=== PATIENT | female | born 1960 | race Caucasian/White ===

== ENCOUNTER 2024-03-10 08:41 | Outpatient (OUT) | payer OTHER, SELFPAY ==
[2024-03-10 08:59] LABS: Basophils Percent Auto 0.5 % (0.2-2.0); Eosinophils Absolute Auto 0.1 10^3/uL (0.0-0.7); Eosinophils Percent Auto 1.8 % (0.9-7.0); Hematocrit 43.4 % (36.0-48.0); Hemoglobin 14.3 g/dL (12.0-16.0); Lymphocytes Absolute Auto 1.5 10^3/uL (1.2-3.8); Lymphocytes Percent Auto 38.4 % (20.5-60.0); Mean Corpuscular HGB Conc 32.9 g/dL (29.9-35.2); Mean Corpuscular Hemoglobin 32.6 pg (26.7-34.0); Mean Corpuscular Volume 99.1 fL (81.0-99.0); Mean Platelet Volume 11.4 fL (9.5-13.5); Monocytes Absolute Auto 0.3 10^3/uL (0.3-0.8); Monocytes Percent Auto 7.5 % (1.7-12.0); Neutrophils Absolute Auto 2.1 10^3/uL (1.4-6.5); Neutrophils Percent Auto 51.8 % (43.0-75.0); Platelet Count 182 10^3/uL (150-450); Red Blood Count 4.38 10^6/uL (4.20-5.40); Red Cell Distribution Width 13.3 % (11.0-15.0)
[2024-03-10 09:21] LABS: Estimated Average Glucose 114 mg/dL; Glycohemoglobin A1C 5.6 % (4.5-6.2)
[2024-03-10 09:59] LABS: Alanine Aminotransferase 22 U/L (14-59); Albumin Level 3.4 g/dL (3.4-5.0); Alkaline Phosphatase 94 U/L (46-116); Anion Gap 13.6; Aspartate Amino Transferase 12 U/L (15-37); BUN Creatinine Ratio 16.2; Bilirubin Total 0.5 mg/dL (0.2-1.0); Calcium 8.9 mg/dL (8.5-10.1); Carbon Dioxide 27.6 mmol/L (21.0-32.0); Chloride 108 mmol/L (98-107); Chol HDL Ratio 3.2; Cholesterol 234 mg/dL (<=200); Estimated GFR (African America >60 (>=60 mL/min/1.73m^2); Estimated GFR (Non-African Ame 57 (>=60 mL/min/1.73m^2); Free T3 2.57 pg/mL (2.18-3.98); Globulin 3.4 g/dL; Glucose 92 mg/dL (74-106); HDL Cholesterol 72 mg/dL (40-60); Potassium 4.2 mmol/L (3.5-5.1); Sodium 145 mmol/L (136-145); Thyroid Stimulating Hormone 2.001 uIU/mL (0.358-3.740); Total Protein 6.8 g/dL (6.4-8.2); Triglycerides 80 mg/dL (<=150)
[2024-03-11 11:13] LABS: Insulin 10.6 uIU/mL (2.6-24.9)
== END 2024-03-10 08:42 | disposition home or self-care (01) ==
LOC: LAB 08:45
PROVIDERS: PCP Family Medicine; Visit Provider Nurse Practitioner Family
DX: E78.5 Hyperlipidemia, unspecified (principal); R53.83 Other fatigue; R73.09 Other abnormal glucose
CPT/HCPCS: 36415; 80053; 80061; 83036; 83525; 84436; 84443; 84481; 85025

== ENCOUNTER 2024-03-14 10:07 | Outpatient (OUT) | payer OTHER, SELFPAY ==
--- NOTE | 2024-03-14 10:09 | MM_ITS ---
Patient Name: ENDER HAINES MR#: [id number] : 1960 Exam Date: 03/14/2024 Ordering Doctor: DR Waqas Mcgill . RADIOLOGY REPORT PROCEDURE: MM TOMOSYNTHESIS SCREENING BI COMPARISON: MG MAMM SCREEN 3D TARA CAD, 08/22/2021. MG MAMM SCREEN TARA W CAD, 07/03/2018. MG MAMM TARA SCRN W CAD DIG, 05/03/2015. INDICATIONS: Screening Calculator Name NCI Breast Cancer Risk Assessment Tool 5 Year Breast Cancer Risk 1.60% Lifetime Breast Cancer Risk 7.90% Personal Breast Cancer No Personal Ovarian Cancer No Treatments None Family Cancers Aunt-maternal with breast cancer at age ~50; Aunt-paternal with breast cancer at age 73. LOCATION: [facility] BREAST COMPOSITION: The breasts are heterogeneously dense,which may obscure small masses. FINDINGS: DIAGNOSTIC CATEGORY 2--BENIGN FINDING: RIGHT BREAST: No significant suspicious finding. Scattered benign-appearing calcifications are present. No significant change has occurred. LEFT BREAST: No significant suspicious finding. No significant change has occurred. RECOMMENDATIONS: ROUTINE MAMMOGRAM AND CLINICAL EVALUATION IN 12 MONTHS. PLEASE NOTE: A NORMAL MAMMOGRAM DOES NOT EXCLUDE THE POSSIBILITY OF BREAST CANCER. A CLINICALLY SUSPICIOUS PALPABLE LUMP SHOULD BE BIOPSIED. Dictated by: Nicola Orantes M.D. on 03/14/2024 at 12:04 Approved by: Nicola Orantes M.D. on 03/14/2024 at 12:54
== END 2024-03-14 10:08 | disposition home or self-care (01) ==
LOC: MAMMO 10:07
PROVIDERS: PCP Family Medicine; Visit Provider Family Medicine
DX: Z12.31 Encounter for screening mammogram for malignant neoplasm of breast (principal); Z80.3 Family history of malignant neoplasm of breast
CPT/HCPCS: 77063; 77067

== ENCOUNTER 2025-03-26 08:49 | Outpatient (OUT) | payer OTHER, SELFPAY ==
--- NOTE | 2025-03-26 08:51 | MM_ITS ---
Patient Name: ENDER HAINES MR#: [id number] : 1960 Exam Date: 03/26/2025 Ordering Doctor: DR JACQUELINE AL . RADIOLOGY REPORT PROCEDURE: MM TOMOSYNTHESIS SCREENING BI COMPARISON: MM TOMOSYNTHESIS SCREENING BI, 03/14/2024. MG MAMM SCREEN 3D TARA CAD, 08/22/2021. MG MAMM SCREEN TARA W CAD, 07/03/2018. MG MAMM TARA SCRN W CAD DIG, 05/03/2015. INDICATIONS: Screening Calculator Name NCI Breast Cancer Risk Assessment Tool 5 Year Breast Cancer Risk 1.70% Lifetime Breast Cancer Risk 7.70% Personal Breast Cancer No Personal Ovarian Cancer No Treatments None Family Cancers Aunt-maternal with breast cancer at age ~50; Aunt-paternal with breast cancer at age 73. LOCATION: [facility] BREAST COMPOSITION: There are scattered areas of fibroglandular density. FINDINGS: DIAGNOSTIC CATEGORY 1--NEGATIVE. RIGHT BREAST: No significant suspicious finding. LEFT BREAST: No significant suspicious finding. RECOMMENDATIONS: ROUTINE MAMMOGRAM AND CLINICAL EVALUATION IN 12 MONTHS. Dictated by: Tesfaye Dewey DO on 03/26/2025 at 10:48 Approved by: Tesfaye Dewey DO on 03/26/2025 at 10:50
--- OUTSIDE RECORDS SUMMARY | 2025-03-26 08:52 | XMS_ITS | Patient Health Record ---
Author Organization [facility] [place] Address [address] [place] [address] Care Team Providers Care General Manager Name Role Phone Jayjay Mcgill Primary Care Provider [phone] Allergies No Known Allergies Reason For Referral No Information Social History Tobacco Use: Social History Observation Description Date Details (start date - stop date) Never Smoker NA - NA Tobacco Control (Standard) Question Answer Notes Tobacco use: Nonsmoker AUDIT-C (Standard) Question Answer Notes Did you have a drink containing alcohol in the p ast year? No [id number] Plan Of Treatment Pending Test Test Name Order Date CMP (COMPLETE METABOLIC PANEL) 4 HEMOGLOBIN A1C (GLYCO) 03/06/2024 INSULIN, TOTAL 03/06/2024 LIPID PANEL (CHOL/TRIG/HDL/LDL) 03/06/20 24 CBC WITH DIFF (EXP 02/2025) 03/06/2024 THYROID PANEL (T4/TSH/FREE T3) 4 Insurance Providers Payer Name Payer Address Payer Phone Subscriber Number Group Number Insured Name Patient Relationship to Insured Coverage Start Date Coverage End Date ADELE ZARCOG [address] ATTN CLAIMS [place], [place] [id number] Beverly Oliverelf - patient is the insured
--- OUTSIDE RECORDS SUMMARY | 2025-03-26 08:54 | XMS_ITS | CCD ---
Author Organization [facility] Care Team Providers Care Supervisor Powdered Sugar Name Role Phone SERVANDO, DR PHILLIPS Primary Care Unavailable ERNESTO, YAIR Admitting Unavailable ERNESTO, YAIR Attending Unavailable CHERI, DR JOSE Vazquez Consulting Unavailable MYKE, JORY Consulting Unavailable ERNESTO, YAIR Consulting Unavailable MISHA, GIPrem Consulting Unavailable SERVANDO, DR PHILLIPS Admitting Unavailable HOY, DR PHILLIPS Attending Unavailable HOY, DR PHILLIPS Primary Care Unavailable HOY, DR PHILLIPS Consulting Unavailable HOY, DR PHILLIPS Admitting Unavailable HOY, DR PHILLIPS Attending Unavailable HOY, DR PHILLIPS Primary Care Unavailable HOY, DR PHILLIPS Consulting Unavailable WEST, DR ANNIE Ram Consulting Unavailable GRICELDA, CHUCHO Admitting Unavailable GRICELDA, CHUCHO Attending Unavailable HOY, DR PHILLIPS Primary Care Unavailable GRICELDA, CHUCHO Consulting Unavailable HOY, DR PHILLIPS Admitting Unavailable HOY, DR PHILLIPS Attending Unavailable HOY, DR PHILLIPS Primary Care Unavailable HOY, DR PHILLIPS Consulting Unavailable HOY, DR PHILLIPS Admitting Unavailable HOY, DR PHILLIPS Attending Unavailable HOY, DR PHILLIPS Primary Care Unavailable HOY, DR PHILLIPS Consulting Unavailable HOY, DR PHILLIPS Admitting Unavailable HOY, DR PHILLIPS Attending Unavailable HOY, DR PHILLIPS Primary Care Unavailable HOY, DR PHILLIPS Consulting Unavailable Problems Active Problems Problem ClassificationProblemDateDocumented DateEpisodic/ChronicSyncope (4 sources)Syncope and collapse; Translations: [SYNCOPE AND COLLAPSE]Onset: 93-74-5043WffcdycdVvlnsikvovvf (2 sources)CONTACT W/AND (SUSP) EXPOS COVID-19; Translations: [CONTACT W/AND (SUSP) EXPOS COVID-19]Onset: 95-08-3585Awxol infection (1 source)COVID-19; Translations: [COVID-19]Onset: 01-01-2022 Past or Other Problems Problem ClassificationProblemDateDocumented DateEpisodic/ChronicOther screening for suspected conditions (not mental disorders or infectious disease) (8 sources)Encounter for screening mammogram for malignant neoplasm of breast; Translations: [Encounter for screening for malignant neoplasm of cervix]Onset: 82-61-3515CgvtczonQlzuxugm codes; unclassified (1 source)Family history of malignant neoplasm of breast; Translations: [FAMILY HX MALIG NEOPLASM OF BREAST]Onset: 26-69-5126TjmtxatwGbtwtxphwluc (1 source)CONTACT W/AND (SUSP) EXPOS COVID-19; Translations: [CONTACT W/AND (SUSP) EXPOS COVID-19]Onset: 12-30-2021 Results Test NameValueInterpretationReference RangeFacilityECHOCARDIO M/2D COMPLETEon [id number] M/2D COMPLETEPatient: ENDER HAINES Exam Date: 01/27/2022 : 1960 Gender:F Ordering : DR JACQUELINE AL . Admission #: [id number] Family : Order #: [id number] CLICK HERE TO VIEW EXAM ECHOCARDIOGRAM REPORT PROCEDURE: CARDIO PULMONARY ECHOCARDIO M/2D COMP INDICATIONS: Syncope COMPARISON: None. DESCRIPTION: COMPLETE ECHOCARDIOGRAM Real-time transthoracic echocardiography with 2D, M-mode, spectral and color flow Doppler performed. QUALITY: Technical quality was good. LEFT VENTRICLE: Normal chamber size. Normal left ventricular wall thickness. Global left ventricular systolic function is normal. LV EF: Estimated left ventricular ejection fraction is 60-65%. DIASTOLIC: Diastolic function is indeterminate. ATRIAL SEPTUM: LEFT ATRIUM: Normal chamber size. RIGHT ATRIUM: Mild dilatation. RIGHT VENTRICLE: Mild dilatation. Normal right ventricular systolic function. TRICUSPID VALVE: Normal mobility and thickness. No stenosis with mild regurgitation. No evidence of pulmonary hypertension. RVSP 29 mmHg. MITRAL VALVE: Normal mobility and thickness. No mitral valve prolapse. No evidence of mitral valve stenosis. There is no mitral annular calcification. Trivial mitral regurgitation. AORTIC VALVE: Normal trileaflet appearance. No visible sclerosis. Normal leaflet mobility. No evidence of aortic valve stenosis. No aortic regurgitation. AORTIC ROOT: Normal diameter and appearance. PULMONIC VALVE: Normal thickness and mobility. No stenosis. Trivial regurgitation. PERICARDIUM: No evidence of pericardial effusion. IVC: Collapses with inspirations. Normal size. PLEURA: CONCLUSION: 1. Normal ventricular systolic function. LVEF is 60 to 65%. 2. No significant valvular dysfunction. 3. Mild biatrial dilatation. 4. Normal right-sided pressures. 5. No pericardial effusion. Adult Echocardiography Procedure Report Left Ventricle LVEDD (3.7 - 5.6 cm): 4.12 cm LVESD (2.2 - 4.0 cm): 2.43 cm LVIVS thickness (0.6 - 1.2 cm): 0.82 cm LVPW thickness (0.5 - 1.0 cm): 0.80 cm e': 0.09 m/s E - e': 7.60 LVOT Max Gradient: 2.80 mm[Hg] Peak Velocity (LVOT): 0.84 m/s Mean Velocity (LVOT): 0.60 m/s LVOT Diameter 1.95 cm Left Ventricular Ejection Fraction: 60-65 % Left Atrium LA Volume Index (2D A2C): 54.91 ml, 54.91 ml Left Atrium Systolic Dimension: 2.79 cm Mitral Valve MV E to A Ratio: 0.80 Mitral Valve A-Wave Peak Velocity: 0.83 m/s Mitral Valve E-Wave Peak Velocity: 0.66 m/s Right Ventricle RV Internal Diastolic Dimension: 3.80 cm Aorta AO Root Diam: 2.81 cm Ascending Ao Diam: 2.39 cm Aortic Valve AoV Area (Peak Yousuf): 1.84 cm2, 1.84 cm2 AoV Area (VTI): 1.80 cm2, 1.80 cm2 Peak Velocity(Antegrade Flow): 1.36 m/s Peak Gradient(Antegrade Flow): 7.41 mm[Hg] Mean Velocity(Antegrade Flow): 0.96 m/s Mean Gradient(Antegrade Flow): 4.18 mm[Hg] Velocity Time Integral: 31.35 cm Tricuspid Valve Peak Velocity (Regurgitant Flow): 2.53 m/s, 2.33 m/s, 2.50 m/s Peak Velocity: 0.42 m/s Pulmonic Valve Mean Gradient: 2.58 mm[Hg], 2.91 mm[Hg] Mean Velocity: 0.75 m/s, 0.79 m/s Peak Velocity: 1.09 m/s, 1.16 m/s Peak Gradient: 4.78 mm[Hg], 5.42 mm[Hg] Right Atrium Right Atrium Systolic Pressure: 79.80 ml, 79.80 ml Dictated by: John Malhotra M.D. on 01/31/2022 at 07:54 Approved by: John Malhotra M.D. on 01/31/2022 at 07:57NormalThTwin City Hospital AUTO DIFFon 98-58-5614ZJQZ #0.0 103/ulNormal0.0-0.1The [facility] HospitalComment on above:Performed By: #### CBC #### [facility] [address] [address] [address] Aj MedinaBasophils/100 WBC (Bld)0.4 %Normal0.2-2.0The [facility] Comment on above:Performed By: #### CBC #### [facility] [address] [address] [address] Aj Mauricio #0.0 103/ulNormal0.0-0.7The [facility] HospitalComment on above: Performed By: #### CBC #### [facility] [address] [address] [address] Aj Soosinophils/100 WBC (Bld)0.2 %Critically low0.9-7.0The [facility] HospitalComment on above:Performed By: #### CBC #### [facility] [address] [address] [address] Aj Sorythrocyte distribution width (RBC) [Ratio]13.1 %Vxyrvp34.0-15.0 The [facility] HospitalComment on above:Performed By: #### CBC #### [facility] [address] [address] [address] Aj MedinaHematocrit (Bld) [Volume fraction]40.9 %Okmcbb89.0-48.0The [facility] HospitalComment on above:Performed By: #### CBC #### [facility] [address] [address] [address] Aj MedinaHemoglobin (Bld) [Mass/Vol]13.4 g/lSNagjdj37.0-16.0The [facility] HospitalComment on above:Performed By: #### CBC #### [facility] [address] [address] [address] Aj De La Garza #0.39 10e3/ulCritically high0.00-0.03The [facility] Comment on above:Performed By: #### CBC #### [facility] [address] [address] [address] Aj De La Garza %3.6 %Critically high0.0-0.5The [facility] HospitalComment on above:Performed By: #### CBC #### [facility] [address] [address] [address] Aj Tapia #1.7 103/ulNormal1.2-3.8The [facility] HospitalComment on above:Performed By: #### CBC #### [facility] [address] [place] [address] Dr. Aj Nunnhocytes/100 WBC (Bld)15.3 %Critically low20.5-60.0The [facility] HospitalComment on above:Performed By: #### CBC #### [facility] [address] [address] [address] jA SaucedoUAL DIFF REQNONormalThe [facility] HospitalComment on above: Performed By: #### CBC #### [facility] [address] [address] [address] Aj Leos (RBC) [Entitic mass]32.1 neLxopyf15.7-34.0The [facility] HospitalComment on above:Performed By: #### CBC #### [facility] [address] [place] [address] Dr. Aj Leos (RBC) [Mass/Vol]32.8 g/gEGssuoq71.9-35.2The [facility] Hospitalment on above:Performed By: #### CBC #### [facility] [address] [place] [address] Dr. Aj Leos (RBC) [Entitic vol]98.1 fDEyujyp88.0-99.0The [facility] HospitalComment on above:Performed By: #### CBC #### [facility] [address] [address] [address] Aj Peralta #1.0 103/ulCritically high0.3-0.8ThC[facility] Comment on above:Performed By: #### CBC #### [facility] [address] [address] [address] Aj Lunaocytes/100 WBC (Bld)9.2 %Normal1.7-12.0[facility] Comment on above:Performed By: #### CBC #### [facility] [address] [place] [address] Dr. Aj Orellana #7.8 103/ulCritically high1.4-6.5ThC[facility] Comment on above:Performed By: #### CBC #### [facility] [address] [place] [address] Dr. Aj Garciautrophils/100 WBC (Bld)71.3 %Ujaner41.0-75.0[facility] SpringfieldComment on above:Performed By: #### CBC #### [facility] [address] [place] [address] Dr. Aj Allenlet mean volume (Bld) [Entitic vol]11.0 fLNormal9.5-13.5ThCleveland Clinic Avon HospitalComment on above:Performed By: #### CBC #### [facility] [address] [place] [address] Dr. Aj MedinaPLT169 103/axNkassr612-799Pna [facility] HospitalComment on above: Performed By: #### CBC #### [facility] [address] [place] [address] Dr. Aj MedinaRBC4.17 106/ulCritically low4.20-5.40The [facility] HospitalComment on above:Performed By: #### CBC #### [facility] [address] [place] [address] Dr. Aj MedinaWBC10.9 103/ulNormal4.0-11.0[facility] SpringfieldComment on above:Performed By: #### CBC #### [facility] [address] [address] [address] Aj Castillo CHEST WO W CONon [id number] CHEST WO W CONEXAMINATION: CTA CHEST WO W CON HISTORY: Syncope COMPARISON: Chest radiograph 01/07/2022 TECHNIQUE: CT angiography of the pulmonary arteries following the administration of intravenous contrast. Coronal and sagittal MIP (maximum intensity projection) images were performed. 3-D image processing was performed on a separate workstation. Dose reduction techniques were achieved by using automated exposure control and/or adjustment of mA and/or kV according to patient size and/or use of iterative reconstruction technique. FINDINGS: The study is technically adequate for the diagnosis of pulmonary embolism, with good contrast bolus to the pulmonary arteries. TUBES AND IMPLANTS: None. CHEST WALL AND LOWER NECK: Unremarkable. BONES: No suspicious lesions UPPER ABDOMEN: Unremarkable. MEDIASTINUM AND DIANA: Large paraesophageal hernia with intrathoracic stomach AORTA: Unremarkable. No dissection or other acute aortic syndrome. PULMONARY ARTERIES: No embolism HEART: Not enlarged CORONARY ARTERIES: No coronary artery calcifications. LUNG AND AIRWAYS: Unremarkable. PLEURA: Unremarkable. IMPRESSION: 1. No evidence for pulmonary embolism. No aortic dissection or other acute aortic syndrome. 2. Large paraesophageal hernia with intrathoracic stomach. No evidence of obstruction or ischemia. Electronically authenticated by: ANDREW CABRAL Date: 2022-01-07 21:25[facility]-DIMERon 54-97-5051O-DIMER3.37 mg/L FEUCritically high<=0.59 The [facility] on above:Performed By: #### DDIM #### [facility] [address] [place] [address] Dr. Aj Miles-DIMER COMMENTSSEE BELOWVeterans Health Administration on above:Result Comment: Increases in D-Dimer concentration observed with thromboembolic events can be variable due to localization, size, and age of the thrombus. Therefore, a thromboembolic event cannot be diagnosed with certainty on the basis of the reference range. D-Dimers may also be elevated for a variety of disorders including: advanced age, , coronary disease, cancer, liver disease, infection, inflammation, hematoma, DIC, trauma, post-surgery, diabetes, thrombolytic or anticoagulant therapy, stress, and generalized hospitalization. Performed By: #### DDIM #### [facility] [address] [address] [address] Aj Mcdowell 14(COMP METB)on 32-55-3578Scovguz [Mass/Vol]2.3 g/dL Critically low3.4-5.0The [facility] HospitalComment on above:Performed By: #### CMP, HSTROPN #### [facility] [address] [place] [address] Dr. Aj MedinaAlbumin/Globulin [Mass ratio]0.7 {ratio}NormalThe [facility] HospitalComment on above:Performed By: #### CMP, HSTROPN #### [facility] [address] [place] [address] Dr. Aj CastorenaP [Catalytic activity/Vol]70 U/IAbvkwk01-950Qsj [facility] HospitalComment on above:Performed By: #### CMP, HSTROPN #### [facility] [address] [place] [address] Dr. Aj CastorenaT [Catalytic activity/Vol]37 U/KAracxw10-10Avl [facility] HospitalComment on above:Performed By: #### CMP, HSTROPN #### [facility] [address] [place] [address] Dr. Aj Hussein gap [Moles/Vol]9.2 mmol/LNormalThe [facility] HospitalComment on above:Performed By: #### CMP, HSTROPN #### [facility] [address] [place] [address] Dr. Aj MedinaAST [Catalytic activity/Vol]10 U/LCritically kgp59-35Apj [facility] HospitalComment on above:Performed By: #### CMP, HSTROPN #### [facility] [address] [place] [address] Dr. Aj MedinaBilirubin [Mass/Vol]0.3 mg/dLNormal0.2-1.0The [facility] Comment on above:Performed By: #### CMP, HSTROPN #### [facility] [address] [address] [address] Aj MedinaCalcium [Mass/Vol]7.5 mg/dLCritically low8.5-10.1The [facility] HospitalComment on above:Performed By: #### CMP, HSTROPN #### [facility] [address] [address] [address] Aj MedinaChloride [Moles/Vol]107 mmol/OYpzftw48-206Zaf [facility] Comment on above:Performed By: #### CMP, HSTROPN #### [facility] [address] [address] [address] jA MedinaCO2 [Moles/Vol]29.7 mmol/XVkhsis38.0-32.0The [facility] Comment on above:Performed By: #### CMP, HSTROPN #### [facility] [address] [address] [address] Aj MedinaCreatinine [Mass/Vol]1.06 mg/dLCritically high0.55-1.02The [facility] HospitalComment on above:Performed By: #### CMP, HSTROPN #### [facility] [address] [address] [address] Rocha ChangEGFR-AF EAST TIMORESE>60Normal>=60The [facility] HospitalComment on above:Performed By: #### CMP, HSTROPN #### [facility] [address] [address] [address] Aj SoGFR-NON AF EEZGYYWQ65 mL/min/1.46k3Ikehngcukg low>=60The [facility] HospitalComment on above:Performed By: #### CMP, HSTROPN #### [facility] [address] [address] [address] Aj MedinaGlobulin (S) [Mass/Vol]3.1 g/dLNormalThe [facility] HospitalComment on above:Performed By: #### CMP, HSTROPN #### [facility] [address] [address] [address] Aj MedinaGlucose [Mass/Vol]116 mg/dLCritically dehn65-087Iek [facility] HospitalComment on above:Performed By: #### CMP, HSTROPN #### [facility] [address] [place] [address] Dr. Aj MedinaPotassium [Moles/Vol]3.9 mmol/LNormal3.5-5.1The [facility] Comment on above:Performed By: #### CMP, HSTROPN #### [facility] [address] [place] [address] Dr. Aj MedinaProtein [Mass/Vol]5.4 g/dLCritically low6.4-8.2The [facility] HospitalComment on above:Performed By: #### CMP, HSTROPN #### [facility] [address] [place] [address] Dr. Aj MedinaSodium [Moles/Vol]142 mmol/SMgamzr987-487Jzp [facility] Comment on above:Performed By: #### CMP, HSTROPN #### [facility] [address] [place] [address] Dr. Aj MedinaUrea nitrogen [Mass/Vol]23.0 mg/dLCritically high7.0-18.0The [facility] HospitalComment on above:Performed By: #### CMP, HSTROPN #### [facility] [address] [place] [address] Dr. Aj MedinaUrea nitrogen/Creatinine [Mass ratio]21.7 mg/mgNormalThe [facility] HospitalComup health system on above:Performed By: #### CMP, HSTROPN #### [facility] [address] [place] [address] Dr. Aj Gil, HIGH SENSITIVITYon 48-68-9625YFGPSP59.2 pg/mLNormal 4.0-51.3The [facility] on above:Result Comment: CUT-OFF POINTS HAVE BEEN ESTABLISHED BASED ON THE FOURTH UNIVERSAL DEFINITIONS OF MYOCARDIAL INFARCTION. THE UPPER REFERENCE LIMIT (URL) OF TROPONIN, DEFINED THE 99TH PERCENTILE OF cTnI DISTRIBUTION IN A REFERENCE POPULATION, HAS BEEN CONFIRMED THE DECISION THRESHOLD FOR NM DIAGNOSIS.Performed By: #### CMP, HSTROPN #### [facility] [address] [address] [address] Aj MedinaXR CHEST 1 Von 70-88-9689JR CHEST 1 VEXAM: XR CHEST 1 V COMPARISON: None available. CLINICAL INDICATION: Syncope. FINDINGS: The cardiomediastinal silhouette is within normal limits. No focal consolidation. No pleural effusion. No pneumothorax. Large hiatal hernia appears to be present overlying the cardiac silhouette. No evidence of acute osseous abnormality. IMPRESSION: 1. No radiographic evidence of acute abnormality. 2. Large hiatal hernia. Electronically authenticated by: JORY STRINGER Date: 2022-01-07 18:52NormalThe [facility] HospitalCovid-19 PCR (CVDTBH)on 65-36-5067AVTT-CoV-2 (COVID-19) RNA ABIODUN+probe Ql (Unsp spec)DetectedCritically abnormalNOT DETECTEDThe [facility] HospitalComment on above:Result Comment: This test is not yet approved or cleared by the [place] FDA. When there are no FDA-approved or cleared tests available, and other criteria are met, FDA can make tests available under an emergency access mechanism called an Emergency Use Authorization (EUA). The EUA for this test is supported by the [place] of Health and Human Service's (HHS's) declaration that circumstances exist to justify the emergency use of in vitro diagnostics for the detection and/or diagnosis of the virus that causes COVID-19. This EUA will remain in effect (meaning this test can be used) for the duration of the COVID-19 declaration justifying emergency of IVDs, unless it is terminated or revoked by FDA (after which the test may no longer be used). Performed By: #### OBSCRN #### [facility] [address] [address] [address] jA MedinaSYMPTOMATIC COVID-19 ANTIGENon 83-82-1071BGM StatementSEE BELOW NormalThe [facility] on above:Result Comment: This test has not been FDA cleared or approved, but has been authorized by the FDA under an Emergency Use Authorization (EUA) for use by authorized laboratories certified under CLIA that meet the requirements to perform moderate or high complexity testing. This test has been authorized only for the detection of proteins from SARS-CoV-2, not for any other viruses or pathogens. The emergency use of this test is authorized for the duration of the declaration that circumstances exist justifying the authorization of emergency use of in vitro diagnostic tests for detection and/or diagnosis of Covid-19 under section 564(b)(1) of the Act, 21 U.S.C. 360bbb-3(b)(1), unless the declaration is terminated or authorization is revoked sooner.Performed By: #### CVDAGS #### [facility] [address] [place] [address] Dr. Aj Briscoe-CoV-2 (COVID-19) RNA ABIODUN+probe Ql (Unsp spec)Positive Critically abnormalNEGATIVEKettering Health SpringfieldComment on above:Performed By: #### CVDAGS #### [facility] [address] [place] [address] Dr. Aj Almeida ACOG PANEL 2: 30 to 65on 08-23-2021..NormalKettering Health SpringfieldComment on above:Result Comment: Performed at: WBPerformed By: #### [id number] #### [facility] [address] [place] [address] Dr. Aj MedinaAge Gdln ACOG Basxuuu04-10LwqceoDymSelect Medical Specialty Hospital - Southeast OhioComment on above:Performed By: #### [id number] #### [facility] [address] [place] [address] Dr. Aj MedinaDIAGNOSIS:CommentVeterans Health Administration on above: Result Comment: NEGATIVE FOR INTRAEPITHELIAL LESION OR MALIGNANCY. Performed at: WBPerformed By: #### [id number] #### [facility] [address] [place] [address] Dr. Aj MedinaHPLeanna AptimaNegativeNormalNegativeKettering Health SpringfieldComup health system on above:Result Comment: This nucleic acid amplification test detects fourteen high-risk HPV types (16,18,31,33,35,39,45,51,52,56,58,59,66,68) without differentiation. Performed at: =GPerformed By: #### [id number] #### [facility] [address] [place] [address] Dr. Aj MedinaMethodology:CommentVeterans Health Administration on above: Result Comment: This liquid based ThinPrep(R) pap test was screened with the use of an image guided system. Performed at: WBPerformed By: #### [id number] #### [facility] [address] [place] [address] Dr. Aj MedinaNote:CommentVeterans Health Administration on above:Result Comment: The Pap smear is a screening test designed to aid in the detection of premalignant and malignant conditions of the uterine cervix. It is not a diagnostic procedure and should not be used as the sole means of detecting cervical cancer. Both false-positive and false-negative reports do occur. . Performed at: WBPerformed By: #### [id number] #### [address] [place] [address] Dr[address] Aj MedinaPerformed by:CommentVeterans Health Administration on above: Result Comment: Aletha Ko Jacquard Loom Weaver (ASCP) Performed at: WBPerformed By: #### [id number] #### [facility] [address] [place] [address] Dr. Aj MedinaSpecimen adequacy:CommentVeterans Health Administration on above:Result Comment: Satisfactory for evaluation. Endocervical and/or squamous metaplastic cells (endocervical component) are present. Performed at: WBPerformed By: #### [id number] #### [facility] [address] [place] [address] Dr. Aj MedinaMG MAMM SCREEN 3D TARA CADon [id number] MAMM SCREEN 3D TARA CAD Patient: ENDER HAINES Exam Date: 08/22/2021 : 1960 Gender:F Ordering : DR JACQUELINE AL . Admission #: [id number] Family : Order #: [id number] CLICK HERE TO VIEW EXAM RADIOLOGY REPORT PROCEDURE: MAMMOGRAM SCREENING 3D BILATERAL CAD COMPARISON: MG MAMM TARA SCRN W CAD DIG, 05/03/2015. MG MAMM SCREEN TARA W CAD, 07/03/2018. INDICATIONS: Screening mammography Calculator Name NCI Breast Cancer Risk Assessment Tool 5 Year Breast Cancer Risk 1.50% Lifetime Breast Cancer Risk 8.30% Personal Breast Cancer No Personal Ovarian Cancer No Treatments None Family Cancers Aunt-maternal with breast cancer at age 50; Aunt-paternal with breast cancer at age 73. LOCATION: [facility] BREAST COMPOSITION: Heterogeneously dense,which may obscure small masses. FINDINGS: DIAGNOSTIC CATEGORY 2--BENIGN FINDING. NO CHANGE FROM COMPARISON. Scattered benign-appearing nodules are present. Scattered benign-appearing calcifications are present. Scattered benign-appearing lymph nodes are present. RIGHT BREAST: No significant suspicious finding. LEFT BREAST: No significant suspicious finding. RECOMMENDATIONS: ROUTINE MAMMOGRAM AND CLINICAL EVALUATION IN 12 MONTHS. PLEASE NOTE: A NORMAL MAMMOGRAM DOES NOT EXCLUDE THE POSSIBILITY OF BREAST CANCER. A CLINICALLY SUSPICIOUS PALPABLE LUMP SHOULD BE BIOPSIED. Dictated by: Annie Bernardo MD on 08/22/2021 at 12:58 Approved by: Annie Bernardo MD on 08/22/2021 at 13:00Norm[facility] INSULINon 46-79-8851Jvcglzn82.4 uIU/mLNormal2.6-24.9The [facility] HospitalComment on above:Performed By: #### INSULIN #### [facility] [address] [place] [address] Dr. Aj Strange AUTO DIFFon 73-47-1378HFWZ #0.0 103/ulNormal0.0-0.1The [facility] HospitalComment on above:Performed By: #### OBSCRN #### [facility] [address] [place] [address] Dr. Aj Josephsophils/100 WBC (Bld)0.4 %Normal0.2-2.0The [facility] Comment on above:Performed By: #### OBSCRN #### [facility] [address] [place] [address] Dr. Aj Mauricio #0.1 103/ulNormal0.0-0.7The [facility] HospitalComment on above: Performed By: #### OBSCRN #### [facility] [address] [place] [address] Dr. Aj Soosinophils/100 WBC (Bld)2.6 %Normal0.9-7.0The [facility] Comment on above:Performed By: #### OBSCRN #### [facility] [address] [place] [address] Dr. Aj Sorythrocyte distribution width (RBC) [Ratio]13.7 %Iuobyy80.0-15.0 The [facility] HospitalComment on above:Performed By: #### OBSCRN #### [facility] [address] [place] [address] Dr. Aj MedinaHematocrit (Bld) [Volume fraction]43.2 %Xohbwv11.0-48.0The [facility] HospitalComment on above:Performed By: #### OBSCRN #### [facility] [address] [place] [address] Dr. Aj MedinaHemoglobin (Bld) [Mass/Vol]14.1 g/wFCupqsd56.0-16.0The [facility] HospitalComment on above:Performed By: #### OBSCRN #### [facility] [address] [place] [address] Dr. Aj De La Garza #0.01 10e3/ulNormal0.00-0.03The [facility] HospitalComment on above:Performed By: #### OBSCRN #### [facility] [address] [place] [address] Dr. Aj De La Garza %0.2 %Normal0.0-0.5The [facility] HospitalComment on above: Performed By: #### OBSCRN #### [facility] [address] [place] [address] Dr. Aj CoxMPH #1.9 103/ulNormal1.2-3.8The [facility] HospitalComment on above:Performed By: #### OBSCRN #### [facility] [address] [place] [address] Dr. Aj Coxmphocytes/100 WBC (Bld)41.2 %Lzuozj73.5-60.0The [facility] HospitalComment on above:Performed By: #### OBSCRN #### [facility] [address] [address] [address] Aj Boyce DIFF REQNONormalThe [facility] HospitalComment on above: Performed By: #### OBSCRN #### [facility] [address] [place] [address] Dr. Aj Leos (RBC) [Entitic mass]32.3 emHkyylb46.7-34.0The [facility] HospitalComment on above:Performed By: #### OBSCRN #### [facility] [address] [place] [address] Dr. Aj Leos (RBC) [Mass/Vol]32.6 g/wNDpgqqz56.9-35.2The [facility] HospitalComment on above:Performed By: #### OBSCRN #### [facility] [address] [place] [address] Dr. Aj LeosV (RBC) [Entitic vol]99.1 fLCritically high81.0-99.0The [facility] HospitalComment on above:Performed By: #### OBSCRN #### [facility] [address] [place] [address] Dr. Aj Peralta #0.3 103/ulNormal0.3-0.8The [facility] HospitalComment on above:Performed By: #### OBSCRN #### [facility] [address] [place] [address] Dr. Aj Lunaocytes/100 WBC (Bld)7.3 %Normal1.7-12.0The [facility] Comment on above:Performed By: #### OBSCRN #### [facility] [address] [place] [address] Dr. Aj Orellana #2.2 103/ulNormal1.4-6.5The [facility] HospitalComment on above:Performed By: #### OBSCRN #### [facility] [address] [place] [address] Dr. Aj Garciautrophils/100 WBC (Bld)48.3 %Erdczi03.0-75.0The [facility] Hospitalment on above:Performed By: #### OBSCRN #### [facility] [address] [address] [address] Aj Allenlet mean volume (Bld) [Entitic vol]11.7 fLNormal9.5-13.5The [facility] HospitalComment on above:Performed By: #### OBSCRN #### [facility] [address] [place] [address] Dr. Aj MedinaPLT183 103/uwQdutha902-184Ffz [facility] HospitalComment on above: Performed By: #### OBSCRN #### [facility] [address] [place] [address] Dr. Aj MedinaRBC4.36 106/ulNormal4.20-5.40The [facility] HospitalComment on above:Performed By: #### OBSCRN #### [facility] [address] [place] [address] Dr. Aj MedinaWBC4.5 103/ulNormal4.0-11.0The [facility] HospitalComment on above: Performed By: #### OBSCRN #### [facility] [address] [place] [address] Dr. Aj Brewer THYROXINE INDEX T7on 04-37-0227SWX4.91NormalThCleveland Clinic Avon HospitalComment on above:Performed By: #### TSH, LIPID, T7, CMP #### [facility] [address] [place] [address] Dr. Aj MedinaT3U32.0 %Ytgrkj00.5-40.5The [facility] on above: Performed By: #### TSH, LIPID, T7, CMP #### [facility] [address] [place] [address] Dr. Aj MedinaT4 [Mass/Vol]9.10 ug/dLNormal4.80-13.90The [facility] on above:Performed By: #### TSH, LIPID, T7, CMP #### [facility] [address] [place] [address] Dr. Aj MedinaGLYCOHEMOGLOBIN A1Con 87-01-2772OWD RECOMMENDATIONSEE BELOWNoreplaced by [facility] HospitalComup health system on above:Result Comment: ADA RECOMMENDED LIMIT 4.0 - 6.0 ADA THERAPEUTIC TARGET < 7.0 ACTION SUGGESTED > 7.0Performed By: #### OBSCRN #### [facility] [address] [place] [address] Dr. Aj MedinaGlucose [Mass/Vol]111 mg/dLNoSelect Medical Specialty Hospital - Southeast OhioComup health system on above:Performed By: #### OBSCRN #### [facility] [address] [place] [address] Dr. Aj MedinaHbA1c (Bld) [Mass fraction]5.5 %Normal4.5-6.2The [facility] HospitalComup health system on above:Performed By: #### OBSCRN #### [facility] [address] [place] [address] Dr. Aj MedinaIROZoila 04-47-8896Uory [Mass/Vol]83.0 ug/tNMksaur80.0-170.0[facility] on above:Performed By: #### OBSCRN #### [facility] [address] [place] [address] Dr. Aj MedinaLIPID PROFILEon 25-02-0744TKYS-HDL RATIO NORMSEE BELOWBarney Children's Medical CenterComup health system on above:Result Comment: 3.3 - 4.4 LOW RISK 4.4 - 7.1 AVERAGE RISK 7.1 - 11.0 MODERATE RISK >11.0 HIGH RISKPerformed By: #### OBSCRN #### [facility] [address] [place] [address] Dr. Aj MedinaCholesterol [Mass/Vol]227 mg/dLCritically high<=200The [facility] on above:Performed By: #### OBSCRN #### [facility] [address] [place] [address] Dr. Aj MedinaCholesterol in HDL [Mass/Vol]61 mg/dLCritically tdqw78-49Mqv [facility] on above:Performed By: #### OBSCRN #### [facility] [address] [address] [address] Aj MedinaCholesterol in LDL [Mass/Vol]145.6 mg/dLBarney Children's Medical CenterComment on above:Performed By: #### OBSCRN #### [facility] [address] [place] [address] Dr. Aj Godinezesterpreet.total/Cholesterol in HDL [Mass ratio]3.7 {ratio} NormalThe [facility] HospitalComment on above:Performed By: #### OBSCRN #### [facility] [address] [place] [address] Dr. Aj Beck NORMAL> or = 60 mg/dl - LOW CARDIOVASCULAR RISK <40 mg/dl - HIGH CARDIOVASCULAR RISKBarney Children's Medical CenterComment on above:Performed By: #### OBSCRN #### [facility] [address] [place] [address] Dr. Aj Jeff CALC NORMALSEE BELOWNoSelect Medical Specialty Hospital - Southeast OhioComment on above:Result Comment: <100 mg/dl OPTIMAL 100 - 129 mg/dl NEAR OR ABOVE OPTIMAL 130 - 159 mg/dl BORDERLINE HIGH 160 - 189 mg/dl HIGH >190 mg/dl VERY HIGH Performed By: #### OBSCRN #### [facility] [address] [place] [address] Dr. Aj MedinaTriglyceride [Mass/Vol]102 mg/dLNormal<=150The [facility] Comment on above:Performed By: #### OBSCRN #### [facility] [address] [place] [address] Dr. Aj HurleyLDL CALC20.4 mg/dLBarney Children's Medical CenterComment on above: Performed By: #### OBSCRN #### [facility] [address] [place] [address] Dr. Aj Goss BLD IMMUNO SCREENon 42-31-4329BHNDWI BLOODNegativeNormal NEGATIVEThe [facility] HospitalComment on above:Performed By: #### OBSCRN #### [facility] [address] [place] [address] Dr. Aj RodriguezF 14(COMP METB)on 34-49-0714Qzyfqas [Mass/Vol]3.4 g/dLNormal 3.4-5.0The [facility] HospitalComment on above:Performed By: #### OBSCRN #### [facility] [address] [place] [address] Dr. Aj MedinaAlbumin/Globulin [Mass ratio]0.9 {ratio}NormalThe [facility] HospitalComment on above:Performed By: #### OBSCRN #### [facility] [address] [place] [address] Dr. Aj CastorenaP [Catalytic activity/Vol]88 U/OIpfjtq61-775Aej [facility] HospitalComment on above:Performed By: #### OBSCRN #### [facility] [address] [place] [address] Dr. Aj CastorenaT [Catalytic activity/Vol]24 U/OXqutgx76-06Gqx [facility] HospitalComment on above:Performed By: #### OBSCRN #### [facility] [address] [place] [address] Dr. Aj Hussein gap [Moles/Vol]7.3 mmol/LNormalThe [facility] HospitalComment on above:Performed By: #### OBSCRN #### [facility] [address] [place] [address] Dr. Aj MedinaAST [Catalytic activity/Vol]15 U/SVhzvgh22-48Fxc [facility] HospitalComment on above:Performed By: #### OBSCRN #### [facility] [address] [place] [address] Dr. Aj MedinaBilirubin [Mass/Vol]0.5 mg/dLNormal0.2-1.0The [facility] Comment on above:Performed By: #### OBSCRN #### [facility] [address] [place] [address] Dr. Aj MedinaCalcium [Mass/Vol]8.5 mg/dLNormal8.5-10.1The [facility] Comment on above:Performed By: #### OBSCRN #### [facility] [address] [address] [address] Aj MedinaChloride [Moles/Vol]106 mmol/PTefftm66-755Sln [facility] Comment on above:Performed By: #### OBSCRN #### [facility] [address] [address] [address] Aj MedinaCO2 [Moles/Vol]30.0 mmol/JOryrjk94.0-32.0The [facility] Comment on above:Performed By: #### OBSCRN #### [facility] [address] [address] [address] Aj MedinaCreatinine [Mass/Vol]0.90 mg/dLNormal0.55-1.02The [facility] HospitalComment on above:Performed By: #### OBSCRN #### [facility] [address] [place] [address] Dr. Rocha ChangEGFR-AF EAST TIMORESE>60Normal>=60The [facility] HospitalComment on above:Performed By: #### OBSCRN #### [facility] [address] [address] [address] Aj SoGFR-NON AF EAST TIMORESE>60Normal>=60The [facility] HospitalComment on above:Performed By: #### OBSCRN #### [facility] [address] [address] [address] Aj MedinaGlobulin (S) [Mass/Vol]3.9 g/dLNormalThe [facility] HospitalComment on above:Performed By: #### OBSCRN #### [facility] [address] [address] [address] Aj MedinaGlucose [Mass/Vol]97 mg/jNQjtblt95-507Uak [facility] Comment on above:Performed By: #### OBSCRN #### [facility] [address] [address] [address] Aj MedinaPotassium [Moles/Vol]4.3 mmol/LNormal3.5-5.1The [facility] Comment on above:Performed By: #### OBSCRN #### [facility] [address] [address] [address] Aj MedinaProtein [Mass/Vol]7.3 g/dLNormal6.1-8.2The [facility] Comment on above:Performed By: #### OBSCRN #### [facility] [address] [place] [address] Dr. Aj MedinaSodium [Moles/Vol]139 mmol/CBvbvqp090-223Opt [facility] Comment on above:Performed By: #### OBSCRN #### [facility] [address] [place] [address] Dr. Aj MedinaUrea nitrogen [Mass/Vol]14.0 mg/dLNormal7.0-18.0The [facility] HospitalComment on above:Performed By: #### OBSCRN #### [facility] [address] [place] [address] Dr. Aj Rucker nitrogen/Creatinine [Mass ratio]15.6 mg/mgNoSelect Medical Specialty Hospital - Southeast OhioComment on above:Performed By: #### OBSCRN #### [facility] [address] [place] [address] Dr. Aj Villegas 31-16-2827TJK7.119 uIU/mLNormal0.470-4.680The [facility] HospitalComment on above:Performed By: #### OBSCRN #### [facility] [address] [place] [address] Dr. Aj Gonzalez [facility]ENTEREE BELOWBarney Children's Medical CenterComment on above: Result Comment: <0.34 UIU/ml HYPERTHYROID 0.34-5.60 UIU/ml EUTHYROID >5.60 UIU/ml HYPOTHYROIDPerformed By: #### OBSCRN #### [facility] [address] [place] [address] Dr. Aj Medina Encounters Encounter DateEncounter TypeCare ProviderFacilityStart: 01-27-2022 End: 47-37-7401smykwxxgtcOG JACQUELINE ALFacility:H6Uvdzf: 01-11-2022 End: 77-15-5230tchanvoawcMO JACQUELINE HOYFacility:K0Thmsg: 01-07-2022 End: 29-93-9823prlqcdkkbwTX JACQUELINE HOYFacility:F6Chphu: 12-30-2021 End: 28-23-0800bwlyzsbgwoSB JACQUELINE HOYFacility:G0Ptkho: 31-05-4195Uaobwwupz for general adult medical examination without abnormal findingsDR JACQUELINE HOYThe [facility] HospitalStart: 08-22-2021 End: 16-64-9448mpzakocurqVV JACQUELINE HOYFacility:A1Kzhzf: 08-19-2021 End: 04-48-3248nbxjmryrumXF JACQUELINE HOYFacility:K1Ghiyt: 08-19-2021 End: 58-05-0843Jlmyehxup for general adult medical examination without abnormal findingsDR JACQUELINE HOYFacility:H1Sepvp: 08-17-2021 End: 22-71-0152xtgpbbnnuzAVLRQI CRAMERFacility:H1 Payers DatePayer CategoryPayerPolicy [id number] [id number] 2..[id number] 2..[id number] 2..[id number] 2..[id number] 2..[id number] 2..[id number] Summary Purpose Family History No Family History Records Found Advance Directives No Advanced Directives Records Found Additional Source Comments INFORMATION SOURCE (unrecogn ized section and content) DATE CREATED AUTHOR 01/31/2022 [facility] FOR RECORDS PERTAINING TO PATIENTS WHO ARE OR HAVE BEEN ENROLLED IN A CHEMICAL DEPENDENCY/SUBSTANCEABUSE PROGRAM, SOME INFORMATION MAY BE OMITTED. This clinical summary was aggregated from multiple sources. Caution should be exercised in using it in the provision of clinical care. This summary normalizes information from multiple sources, and as a consequence, information in this document may materially change the coding, format and clinical context of patient data. In addition, data may be omitted in some cases. CLINICAL DECISIONS SHOULD BE BASED ON THE PRIMARY CLINICAL RECORDS. [employer] provides no warranty or guarantee of the accuracy or completeness of information in this document.
== END 2025-03-26 08:50 | disposition home or self-care (01) ==
LOC: MAMMO 08:49
PROVIDERS: PCP Family Medicine; Visit Provider Family Medicine
DX: Z12.31 Encounter for screening mammogram for malignant neoplasm of breast (principal); Z80.3 Family history of malignant neoplasm of breast
CPT/HCPCS: 77063; 77067